=== PATIENT | female | born 1985 | race Caucasian/White ===

== ENCOUNTER 2023-04-09 14:06 | Emergency (ER) | payer OTHER ==
[2023-04-09 14:29] VITALS: BP 179/111; O2SAT 100
== END 2023-04-09 15:21 | disposition left against medical advice (07) ==
LOC: ED 14:06
DX: Z53.21 Procedure and treatment not carried out due to patient leaving prior to being seen by health care provider (principal)

== ENCOUNTER 2023-04-09 15:29 | Outpatient (CLI) | payer OTHER ==
--- NOTE | 2023-04-09 16:58 | CT Report ---
PROCEDURE: CT brain without contrast INDICATIONS: FACIAL WEAKNESS TECHNIQUE: Helical axial CT of the brain was obtained without contrast and reformatted in multiple p lanes. Radiation dose reduction was achieved using automated exposure control or adjustment of mA and /or kV according to patient size. COMPARISON: None FINDINGS: CSF spaces: Ventricles are appropriate in size and position. No hydrocephalus. Basal cisterns unre markable. Brain: No midline shift. No intracranial masses or hemorrhage. Becker-white matter interface is norm al. Skull and face: Calvarium and skull base are unremarkable without suspicious lesion. Sinuses: Visualized sinuses and mastoids are clear. IMPRESSION: Unremarkable CT of the brain Reviewed by: Nate Duong MD on 04/09/2023 3:56 PM [facility] Approved by: Nate Duong MD on 04/09/2023 3:56 PM [facility] Station ID: [id number]
== END 2023-04-09 15:30 | disposition home or self-care (01) ==
LOC: DI 15:29
PROVIDERS: ATTEND Student in an Organized Health Care Education/Training Program
DX: R29.810 Facial weakness (principal)